=== PATIENT | female | born 1995 | race Two or more races ===

== ENCOUNTER 2022-11-29 20:22 | Emergency (ER) | payer OTHER ==
[~2022-11-29] VITALS: Ht 162.6 cm; Wt 97.8 kg
[2022-11-29 20:22] VITALS: BP 144/79
== END 2022-11-30 05:33 | disposition left against medical advice (07) ==
LOC: ER 20:22
DX: M54.2 Cervicalgia (principal); Z53.21 Procedure and treatment not carried out due to patient leaving prior to being seen by health care provider

== ENCOUNTER 2023-05-23 04:48 | Emergency (ER) | payer OTHER, MEDICAID ==
[~2023-05-23] VITALS: Ht 162.6 cm; Wt 103.1 kg
[2023-05-23 05:28] LABS: Basophils # (auto) 0 10 ^3/uL (0-0.2); Basophils % (auto) 0.5 % (0.0-2.0); Eosinophils # (auto) 0.4 10 ^3/uL (0-0.8); Lymphocytes % (auto) 24.3 % (10.0-50.0); Mean Corpuscular Hemoglobin 27.7 pg (28.0-32.0); Mean Corpuscular Hgb Conc. 33.4 g/dL (32.0-36.0); Monocytes # (auto) 0.5 10 ^3/uL (0-1.3); Monocytes % (auto) 5.9 % (0.0-12.0); Neutrophils # (auto) 5.3 10 ^3/uL (1.6-8.6); Neutrophils % (auto) 64.3 % (37.0-80.0); Nucleated Red Blood Cells % 0.1 %; Red Blood Cells 4.69 10^6/uL (4.0-5.20); Red Cell Distribution Width 13.2 % (11.8-14.3); White Blood Cell 8.2 10^3/uL (4.4-10.8)
[2023-05-23 05:49] LABS: Alanine Aminotransferase 20 U/L (7-40); Albumin 4.2 g/dL (3.2-4.8); Alkaline Phosphatase 85 U/L (46-116); Anion Gap 6 (5-15); Aspartate Aminotransferase 9 U/L (13-40); Blood Urea Nitrogen 9 mg/dL (9-23); Calcium 8.7 mg/dL (8.7-10.4); Carbon Dioxide 26 mmol/L (20-30); Chloride 108 mmol/L (98-107); Glucose 118 mg/dL (74-106); Lipase 43 U/L (12-53); Potassium 4.1 mmol/L (3.5-5.1); Sodium 140 mmol/L (136-145)
[2023-05-23 05:50] LABS: Bilirubin, Total 0.3 mg/dL (0.2-1.0); Total Protein 6.7 g/dL (5.7-8.2)
[2023-05-23 06:41] VITALS: PULSE 81; RESP 15; O2SAT 99
[2023-05-23] MEDS ORDERED: MORPHINE SULFATE INJ 2 MG/ml SYRG IV ONE (07:00)
[2023-05-23] MEDS ORDERED: ONDANSETRON HCL 4 MG/2 ML VIAL IV ONE (07:00)
[2023-05-23 07:45] VITALS: PULSE 78; RESP 21; O2SAT 98
[2023-05-23 08:00] VITALS: BP 125/75; PULSE 78; RESP 21; TEMP 98.3; O2SAT 98
[2023-05-23] MEDS ORDERED: METR-344 PO (09:29)
[2023-05-23] MEDS ORDERED: AMOX500T3 PO (09:29)
[2023-05-23 09:50] LABS: Urine Bacteria NONE SEEN /hpf (None Seen); Urine Blood 3+ /uL (Negative); Urine Clarity CLOUDY (Clear); Urine Color Yellow (Yellow); Urine Protein, UAD TRACE (Negative); Urine Urobilinogen Normal (Negative); Urine WBC 53 /hpf (0 - 5); Urine pH 5.5 (5.0-8.0)
== END 2023-05-23 09:54 | disposition home or self-care (01) ==
LOC: ER 04:48
DX: K52.9 Noninfective gastroenteritis and colitis, unspecified (principal); R10.2 Pelvic and perineal pain; Z91.040 Latex allergy status
CPT/HCPCS: 36415; 74176; 80053; 81001; 83690; 84702; 85025; 96374; 96375; 99285; J2270; J2405